=== PATIENT | male | born 1990 | race Caucasian/White ===

== ENCOUNTER 2017-07-27 12:30 | Emergency (ER) | payer OTHER, MEDICAID ==
[2017-07-27] MEDS: NORCO, ANEXSIA 5/325MG TABLET (HYDROcodone/ACETAMINOPHEN) PO (13:15)
[2017-07-27] MEDS: ONDANSETRON 4 MG ORAL DISINTEGRATING TAB (S0181) PO (13:15)
== END 2017-07-27 14:32 | disposition home or self-care (01) ==
LOC: M ED 12:30
DX: S02.642A Fracture of ramus of left mandible, initial encounter for closed fracture (principal); Y04.8XXA Assault by other bodily force, initial encounter; Y92.009 Unspecified place in unspecified non-institutional (private) residence as the place of occurrence of the external cause; Y93.89 Activity, other specified; Y99.8 Other external cause status; J45.909 Unspecified asthma, uncomplicated; F41.9 Anxiety disorder, unspecified; M54.30 Sciatica, unspecified side; F17.210 Nicotine dependence, cigarettes, uncomplicated
CPT/HCPCS: 70450

== ENCOUNTER 2017-07-30 11:44 | Emergency (ER) | payer OTHER | END 2017-07-30 15:52 | disposition home or self-care (01) | LOC: M ED 11:44 | DX: Z76.0 Encounter for issue of repeat prescription (principal); F17.210 Nicotine dependence, cigarettes, uncomplicated; Z91.048 Other nonmedicinal substance allergy status | CPT/HCPCS: 99283 ==

== ENCOUNTER → 2018-01-03 | Outpatient (REF) | payer SELFPAY ==
[2018-01-03 20:01] LABS: ALBUMIN 4.6 GM/DL (3.2-5.2); ALBUMIN/GLOBULIN RATIO 1.48 (1.00-1.93); ALKALINE PHOSPHATASE 83 U/L (45-117); ALT/SGPT 30 U/L (12-78); ANION GAP 7 MEQ/L (8-16); AST/SGOT 14 U/L (7-37); BILIRUBIN,TOTAL 0.7 MG/DL (0.2-1.0); BLOOD UREA NITROGEN 13 MG/DL (7-18); CALCIUM LEVEL 8.9 MG/DL (8.5-10.1); CARBON DIOXIDE LEVEL 24 MEQ/L (21-32); CHLORIDE LEVEL 108 MEQ/L (98-107); CREATININE FOR GFR 0.83 MG/DL (0.70-1.30); FERRITIN 30 NG/ML (26-388); GLOMERULAR FILTRATION RATE > 60.0 (>60); GLUCOSE, FASTING 89 MG/DL (70-100); IRON (FE) 153 UG/DL (65-175); POTASSIUM SERUM 4.3 MEQ/L (3.5-5.1); SODIUM LEVEL 139 MEQ/L (136-145); TOTAL PROTEIN 7.7 GM/DL (6.4-8.2)
[2018-01-03 20:02] LABS: ESTIMATED AVERAGE GLUCOSE 97 MG/DL (60-110)
[2018-01-03 20:03] LABS: BASO % 0.6 % (0.0-1.0); EOS # 0.3 10^3/uL (0.0-0.50); EOS % 3.5 % (0.0-3.0); HEMATOCRIT 47.9 % (42.0-52.0); HEMOGLOBIN 16.5 g/dl (13.5-17.5); IMMATURE GRANULOCYTE % 0.3 % (0-3.0); LYMPH % 27.6 % (24.0-44.0); MEAN CORPUSCULAR HEMOGLOBIN 30.2 pg (27.0-33.0); MEAN CORPUSCULAR HGB CONC 34.4 g/dl (32.0-36.5); MEAN CORPUSCULAR VOLUME 87.7 fl (80.0-96.0); MONO # 0.5 10^3/uL (0.0-0.8); MONO % 6.9 % (0.0-5.0); NEUTROPHILS # 4.4 10^3/uL (1.8-7.7); NEUTROPHILS % 61.1 % (36.0-66.0); PLATELET COUNT, AUTOMATED 309 10^3/uL (150-450); RED BLOOD COUNT 5.46 10^6/uL (4.30-6.10); RED CELL DISTRIBUTION WIDTH 12.9 % (11.5-14.5); WHITE BLOOD COUNT 7.2 10^3/uL (4.0-10.0)
[2018-01-04 09:47] LABS: VITAMIN B12 LEVEL 421 PG/ML (247-911)
[2018-01-08 14:16] LABS: VITAMIN B1 LEVEL WHOLE BLOOD 136.5 nmol/L (66.5-200.0)
== END ==
LOC: M LAB REF 18:55
DX: G60.9 Hereditary and idiopathic neuropathy, unspecified (principal)

== ENCOUNTER 2020-06-29 15:19 | Emergency (ER) | payer MEDICAID, OTHER ==
[~2020-06-29 15:19] MED LIST: HYDR-3715 PO; PERC5TAB12 PO; VENTAER IN; ZOFR4TAB14 PO
[2020-06-29 17:46] VITALS: BP 100/62
== END 2020-06-29 17:48 | disposition home or self-care (01) ==
LOC: M ED 15:19
DX: F43.0 Acute stress reaction (principal); J45.909 Unspecified asthma, uncomplicated; F41.9 Anxiety disorder, unspecified

== ENCOUNTER 2020-12-11 09:25 | Inpatient (IN) | payer MEDICAID ==
[~2020-12-11] VITALS: Ht 172.7 cm; Wt 65.2 kg
[2020-12-11] MEDS ORDERED: KETOROLAC 30 MG/ML 1ML VIAL IV ONE (09:35)
[2020-12-11] MEDS ORDERED: ACETAMINOPHEN 500 MG TAB PO ONE (09:35)
[2020-12-11] MEDS ORDERED: VANCOMYCIN HCL 1,250 MG in NS 250 ML IV ONE (09:45)
[2020-12-11] MEDS ORDERED: NS 1,910 ML in IV 1 EA IV ONE (09:45)
[2020-12-11] MEDS ORDERED: VANCOMYCIN HCL 750 MG, VIAL MATE ADAPTER 1 EACH in NS 250 ML IV ONE (09:50)
[2020-12-11 10:02] LABS: VENOUS BASE EXCESS 0.2 (-2.0-2.0); VENOUS HCO3 26.2 MEQ/L (23.0-27.0); VENOUS O2 SATURATION 54.1 % (60.0-80.0); VENOUS PARTIAL PRESSURE CO2 47.2 mmHg (38.0-50.0); VENOUS PARTIAL PRESSURE O2 26.9 mmHg (30.0-50.0); VENOUS PH 7.362 UNITS (7.330-7.430); VENOUS STANDARD HCO3 23.6 MEQ/L; VENOUS TOTAL CO2 27.6 MEQ/L (24.0-28.0)
[2020-12-11 10:06] LABS: BASO % 0.3 % (0.0-1.0); EOS % 0.1 % (0.0-3.0); HEMATOCRIT 41.5 % (42.0-52.0); HEMOGLOBIN 13.8 g/dl (13.5-17.5); LYMPH # 0.2 10^3/uL (1.5-5.0); LYMPH % 1.1 % (24.0-44.0); MEAN CORPUSCULAR HEMOGLOBIN 29.4 pg (27.0-33.0); MEAN CORPUSCULAR HGB CONC 33.3 g/dl (32.0-36.5); MEAN CORPUSCULAR VOLUME 88.5 fl (80.0-96.0); MONO # 0.5 10^3/uL (0.0-0.8); MONO % 2.9 % (2.0-8.0); NEUTROPHILS # 14.8 10^3/uL (1.5-8.5); NEUTROPHILS % 94.2 % (36.0-66.0); PLATELET COUNT, AUTOMATED 202 10^3/uL (150-450); RED BLOOD COUNT 4.69 10^6/uL (4.30-6.10); WHITE BLOOD COUNT 15.7 10^3/uL (4.0-10.0)
--- NOTE | 2020-12-11 10:09 | REP ---
INDICATION: SEPSIS/SHOCK. COMPARISON: 03/27/2016. TECHNIQUE: Single portable AP view of the chest was performed. FINDINGS: There is no acute infiltrate or pulmonary edema. Lungs are clear. The heart is not significantly enlarged. The mediastinal silhouette is unremarkable. The visualized osseous structures are intact. IMPRESSION: No acute pulmonary disease. <Electronically signed by Jairo Sharma > 12/11/20 [id number]
[2020-12-11] MEDS ORDERED: MORPHINE 4 MG/ML 1ML VIAL/SYRINGE (J2270) IV PRN (10:20)
[2020-12-11 10:46] LABS: ALBUMIN 2.5 GM/DL (3.2-5.2); ALT/SGPT 96 U/L (12-78); AMYLASE 20 U/L (25-115); BILIRUBIN,DIRECT 0.6 MG/DL (0.0-0.2); BILIRUBIN,TOTAL 1.1 MG/DL (0.2-1.0); BLOOD UREA NITROGEN 10 MG/DL (7-18); CALCIUM LEVEL 8.4 MG/DL (8.5-10.1); CARBON DIOXIDE LEVEL 29 MEQ/L (21-32); CHLORIDE LEVEL 97 MEQ/L (98-107); CK-MB VALUE MASS < 1.0 NG/ML (<3.6); CPK CREATINE PHOSPHOKINASE 25 U/L (39-308); GLOMERULAR FILTRATION RATE > 60.0 (>60); GLUCOSE, FASTING 129 MG/DL (70-100); POTASSIUM SERUM 3.4 MEQ/L (3.5-5.1); SODIUM LEVEL 133 MEQ/L (136-145); TOTAL PROTEIN 5.8 GM/DL (6.4-8.2); TROPONIN I < 0.02 NG/ML (< 0.10)
[2020-12-11] MEDS ORDERED: VANCOMYCIN HCL 500 MG in D5W MINI-BAG PLUS 100 ML IV ONE (10:50)
--- NOTE | 2020-12-11 10:58 | REP ---
INDICATION: swelling redness ?drainable abscess. COMPARISON: None. TECHNIQUE: Real-time sonographic evaluation of right forearm soft tissues performed. FINDINGS: No fluid collection or abscess is seen. Note is made of occlusive thrombosis of the cephalic vein from the level of the distal humerus to the distal forearm. There is also thrombosis of the basilic vein throughout the forearm. IMPRESSION: No abscess. Thrombosis of cephalic and basilic veins in the forearm. <Electronically signed by Jairo Sharma > 12/11/20 [id number]
--- NOTE | 2020-12-11 13:31 | HPEPDOC ---
[facility] Medical History & Physical Date of Admission December 11, 2020 Date of Service: December 11, 2020 History and Physical CHIEF COMPLAINT: right arm swelling HISTORY OF PRESENT ILLNESS: 30 yo male with pmhx of ivda with "johan" and heroin, presents for 1-2 day history of right arm swelling, with laceration to right 3rd finger. He states his last iv drug use was yesterday with johan. He states he only injects in his forearm, and antecubital fossa. He denies chest pain, shortness of breath, abdominal pain, nausea, vomiting, diarrhea. PAST MEDICAL HISTORY: Denies SOCIAL HISTORY: IV drug use ALLERGIES: Please see below. REVIEW OF SYSTEMS: Negative except as per HPI. HOME MEDICATIONS: Please see below. PHYSICAL EXAMINATION: VITAL SIGNS: See below General: NAD, lying comfortably in bed HEENT: NC/AT, EOMI Lungs: CTA B/L Heart: +S1S2, RRR, -M/R/G Abd: soft, NT, +BS Ext: no edema, RUE swelling, erythema, right 3rd digit laceration Neuro: no gross focal deficits, sensation intact throughout, strength 5/5 LABORATORY DATA: See below. MICROBIOLOGY: Please see below. A/P: 30 year old male admitted for RUE cellulitis with PMHx of IVDA. #cellulitis - IV Vanco - cultures pending Vital Signs Vital Signs Date Time Temp Pulse Resp B/P (MAP) Pulse Ox O2 Delivery O2 Flow Rate FiO2 12/11/20 11:21 100.0 12/11/20 11:08 18 12/11/20 11:00 104 106/59 (75) 98 12/11/20 09:34 Room Air Laboratory Data Labs 24H Laboratory Tests 2 12/11/20 09:53: Immature Granulocyte % (Auto) 1.4, Neutrophils (%) (Auto) 94.2H, Lymphocytes (%) (Auto) 1.1L, Monocytes (%) (Auto) 2.9, Eosinophils (%) (Auto) 0.1, Basophils (%) (Auto) 0.3, Neutrophils # (Auto) 14.8H, Lymphocytes # (Auto) 0.2L, Monocytes # (Auto) 0.5, Eosinophils # (Auto) 0.0, Basophils # (Auto) 0.0, Nucleated Red Blood Cells % (auto) 0.0, Blood Gas Bicarbonate Standard 23.6, Venous Blood pH 7.362, Venous Blood Partial Pressure CO2 47.2, Venous Blood Partial Pressure O2 26.9L, Venous Blood Total Carbon Dioxide 27.6, Venous Blood HCO3 26.2, Venous Blood Oxygen Saturation 54.1L, Venous Blood Base Excess 0.2, Anion Gap 7L, Glomerular Filtration Rate > 60.0, Lactic Acid Level 3.6*H, Calcium Level 8.4L, Total Bilirubin 1.1H, Direct Bilirubin 0.6H, Aspartate Amino Transf (AST/SGOT) 33, Alanine Aminotransferase (ALT/SGPT) 96H, Alkaline Phosphatase 118H, Total Creatine Kinase 25L, Creatine Kinase MB < 1.0, Creatine Kinase MB Relative Index 4.00, Troponin I < 0.02, C-Reactive Protein, Quantitative 28.10H, Total Protein 5.8L, Albumin 2.5L, Albumin/Globulin Ratio 0.8, Amylase Level 20L CBC/BMP Laboratory Tests 12/11/20 09:53 Microbiology Microbiology 12/11/20 Blood Culture, Received Pending 12/11/20 Blood Culture, Received Pending 12/11/20 Respiratory Virus Panel (PCR) ([facility]) - Final, Complete Home Medications No Active Prescriptions or Reported Meds Allergies Coded Allergies: Cat Dander (Verified Allergy, Intermediate, 07/27/17) A-FIB/CHADSVASC A-FIB History Current/History of A-Fib/PAF?: No CALLIE THOMASON MD December 11, 2020 13:31
--- NOTE | 2020-12-11 13:54 | ECGEPIP ---
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
[2020-12-11 14:00] VITALS: BP 125/73
[2020-12-11] MEDS: ALBUTEROL 90 MCG/ACT 8GM HFA INHALER INH PRN (14:33)
[2020-12-11 15:37] LABS: CK-MB VALUE MASS < 1.0 NG/ML (<3.6); CPK CREATINE PHOSPHOKINASE 26 U/L (39-308); MAGNESIUM LEVEL 1.8 MG/DL (1.8-2.4); MB/CK RELATIVE INDEX 3.85 (< OR =4); TROPONIN I < 0.02 NG/ML (< 0.10)
[2020-12-11] MEDS ORDERED: PERCOCET 5MG/325MG TAB PO PRN (16:00)
[2020-12-11] MEDS: PERCOCET 5MG/325MG TAB PO PRN ×2 (16:09→20:50)
[2020-12-11] MEDS: NS 1,000 ML IV SCH (17:30)
[2020-12-11] MEDS: VANCOMYCIN HCL 1,000 MG, VIAL MATE ADAPTER 1 EACH in NS 250 ML IV SCH (17:30)
[2020-12-11] MEDS ORDERED: POTASSIUM CHLORIDE 10 MEQ SR TABLET PO ONE (18:00)
[2020-12-11] MEDS ORDERED: NS 1,000 ML IV ONE (19:10)
[2020-12-11] MEDS ORDERED: IPRATROPIUM 0.5MG/ALBUTEROL 2.5MG INH SOL UD 3ML (DUONEB) NEB PRN (19:35)
[2020-12-11 20:11] LABS: BLOOD UREA NITROGEN 10 MG/DL (7-18); CALCIUM LEVEL 7.4 MG/DL (8.5-10.1); CARBON DIOXIDE LEVEL 25 MEQ/L (21-32); CHLORIDE LEVEL 102 MEQ/L (98-107); CREATININE FOR GFR 0.75 MG/DL (0.70-1.30); GLOMERULAR FILTRATION RATE > 60.0 (>60); GLUCOSE, FASTING 127 MG/DL (70-100); MAGNESIUM LEVEL 1.7 MG/DL (1.8-2.4); POTASSIUM SERUM 4.2 MEQ/L (3.5-5.1); SODIUM LEVEL 134 MEQ/L (136-145)
[2020-12-11 20:25] VITALS: BP 119/64
[2020-12-11] MEDS: PIPERACILLIN/TAZOBACTAM SOD 4.5 GM in D5W MINI-BAG PLUS 50 ML IV SCH (20:49)
[2020-12-11] MEDS ORDERED: MORPHINE 2 MG/ML 1ML VIAL (J2270) IV ONE (22:05)
[2020-12-12] MEDS: VANCOMYCIN HCL 1,000 MG, VIAL MATE ADAPTER 1 EACH in NS 250 ML IV SCH ×4 (02:01→21:33)
[2020-12-12] MEDS: NS 1,000 ML IV SCH ×3 (02:01→19:37)
[2020-12-12] MEDS: ALBUTEROL 90 MCG/ACT 8GM HFA INHALER INH PRN (02:13)
[2020-12-12] MEDS: PIPERACILLIN/TAZOBACTAM SOD 4.5 GM in D5W MINI-BAG PLUS 50 ML IV SCH ×4 (03:09→19:36)
[2020-12-12] MEDS: PERCOCET 5MG/325MG TAB PO PRN ×4 (05:23→18:58)
[2020-12-12 06:47] LABS: HEMATOCRIT 35.8 % (42.0-52.0); MEAN CORPUSCULAR HEMOGLOBIN 29.6 pg (27.0-33.0); MEAN CORPUSCULAR HGB CONC 33.5 g/dl (32.0-36.5); MEAN CORPUSCULAR VOLUME 88.2 fl (80.0-96.0); PLATELET COUNT, AUTOMATED 195 10^3/uL (150-450); RED BLOOD COUNT 4.06 10^6/uL (4.30-6.10); WHITE BLOOD COUNT 11.4 10^3/uL (4.0-10.0)
[2020-12-12 07:01] LABS: BLOOD UREA NITROGEN 8 MG/DL (7-18); CALCIUM LEVEL 7.5 MG/DL (8.5-10.1); CARBON DIOXIDE LEVEL 25 MEQ/L (21-32); CHLORIDE LEVEL 105 MEQ/L (98-107); CREATININE FOR GFR 0.63 MG/DL (0.70-1.30); GLOMERULAR FILTRATION RATE > 60.0 (>60); GLUCOSE, FASTING 110 MG/DL (70-100); POTASSIUM SERUM 4.5 MEQ/L (3.5-5.1); SODIUM LEVEL 135 MEQ/L (136-145)
[2020-12-12 07:23] VITALS: BP 132/62
[2020-12-12] MEDS ORDERED: MAG SULF 1GM/100ML (MAG RUN) 1 GM in IV 1 EA IV ONE (09:00)
--- NOTE | 2020-12-12 09:03 | IPNPDOC ---
Text Note Date of Service The patient was seen on 12/12/20. NOTE Subjective: Patient seen and examined at bedside. Patient was transferred to PCU due to persistent tachycardia. Patient this morning. Denies any new medical complaints. No acute overnight events reported. Objective: VITAL SIGNS: See below General: NAD, lying comfortably in bed HEENT: NC/AT, EOMI Lungs: CTA B/L Heart: +S1S2, RRR, -M/R/G Abd: soft, NT, +BS Ext: no edema, RUE swelling, erythema, right 3rd digit laceration Neuro: no gross focal deficits, sensation intact throughout, strength 5/5 A/P: 30 yo male with pmhx of ivda with "johan" and heroin, presents for 1-2 day history of right arm swelling, with laceration to right 3rd finger. He states his last iv drug use was 12/10/20 with johan. He states he only injects in his forearm, and antecubital fossa. Admitted for RUE cellulitis. #cellulitis - IV Vanco - MRSA screen pending #tachycardia - sinus - likely related to his IVDA #asthma - today he states he has asthma, and he experiences flare ups when he is not using IV drugs #transaminitis - hepatitis profile pending - continue to trend VS,Fishbone, I+O VS, Fishbone, I+O Laboratory Tests 12/11/20 09:53 12/11/20 19:27 12/12/20 06:26 12/12/20 06:27 Vital Signs Date Time Temp Pulse Resp B/P (MAP) Pulse Ox O2 Delivery O2 Flow Rate FiO2 12/12/20 07:23 99.3 123 18 132/62 (85) 95 Room Air I&O- Last 24 Hours up to 6 AM 12/12/20 05:59 Intake Total 4820 ml Output Total 600 ml Balance 4220 ml CALLIE THOMASON MD December 12, 2020 09:03
[2020-12-12 09:32] LABS: ALBUMIN 1.8 GM/DL (3.2-5.2); ALT/SGPT 59 U/L (12-78); BILIRUBIN,DIRECT 0.5 MG/DL (0.0-0.2); BILIRUBIN,TOTAL 0.7 MG/DL (0.2-1.0); TOTAL PROTEIN 4.8 GM/DL (6.4-8.2)
[2020-12-12 10:19] LABS: ERYTHROCYTE SEDIMENTATION RATE 34 mm/hr (0-15)
[2020-12-12 11:45] VITALS: BP 137/79
--- NOTE | 2020-12-12 12:01 | ECGEPIP ---
[facility] Test Date: 2020-12-12 Pat Name: DAYLIN YEPEZ Department: Room: [place] [address] Gender: Male Tromper: AMINTA : 1990 Requested By: CALLIE Tiwair Order Number: [id number] Reading MD: Kristie Garcia Measurements Intervals [place] Rate: 109 P: 51 [place]: 120 QRS: 46 QRSD: 88 T: 45 QT: 290 QTc: 390 Interpretive Statements SINUS TACHYCARDIA NO CHANGE COMPARED TO 12/11/20 Electronically Signed on 12-12-2020 12:00:46 EDT by Kristie Garcia
[2020-12-12] MEDS ORDERED: ONDANSETRON 4 MG TAB PO PRN (13:40)
[2020-12-12 15:46] VITALS: BP 137/81
[2020-12-12 20:00] VITALS: BP 119/65
[2020-12-12] MEDS ORDERED: MORPHINE 4 MG/ML 1ML VIAL/SYRINGE (J2270) IV PRN (22:50)
[2020-12-13] VITALS (7 sets, daily range): BP systolic 122–136; BP diastolic 64–79
[2020-12-13] MEDS: ALBUTEROL 90 MCG/ACT 8GM HFA INHALER INH PRN (01:05)
[2020-12-13] MEDS: PIPERACILLIN/TAZOBACTAM SOD 4.5 GM in D5W MINI-BAG PLUS 50 ML IV SCH ×3 (01:10→13:36)
[2020-12-13] MEDS: PERCOCET 5MG/325MG TAB PO PRN ×5 (02:43→21:32)
[2020-12-13] MEDS: NS 1,000 ML IV SCH ×2 (05:48→13:37)
[2020-12-13] MEDS: VANCOMYCIN HCL 1,000 MG, VIAL MATE ADAPTER 1 EACH in NS 250 ML IV SCH (05:49)
[2020-12-13 06:10] LABS: BASO % 0.4 % (0.0-1.0); EOS # 0.1 10^3/uL (0.0-0.5); EOS % 1.5 % (0.0-3.0); HEMATOCRIT 37.4 % (42.0-52.0); LYMPH % 10.9 % (24.0-44.0); MEAN CORPUSCULAR HEMOGLOBIN 28.6 pg (27.0-33.0); MEAN CORPUSCULAR HGB CONC 32.1 g/dl (32.0-36.5); MEAN CORPUSCULAR VOLUME 89.3 fl (80.0-96.0); MONO % 10.8 % (2.0-8.0); NEUTROPHILS # 7.1 10^3/uL (1.5-8.5); NEUTROPHILS % 75.2 % (36.0-66.0); PLATELET COUNT, AUTOMATED 233 10^3/uL (150-450); RED BLOOD COUNT 4.19 10^6/uL (4.30-6.10); WHITE BLOOD COUNT 9.4 10^3/uL (4.0-10.0)
[2020-12-13 06:39] LABS: BLOOD UREA NITROGEN 9 MG/DL (7-18); CALCIUM LEVEL 7.4 MG/DL (8.5-10.1); CARBON DIOXIDE LEVEL 25 MEQ/L (21-32); CHLORIDE LEVEL 105 MEQ/L (98-107); CREATININE FOR GFR 0.58 MG/DL (0.70-1.30); GLOMERULAR FILTRATION RATE > 60.0 (>60); GLUCOSE, FASTING 103 MG/DL (70-100); MAGNESIUM LEVEL 2.1 MG/DL (1.8-2.4); POTASSIUM SERUM 4.6 MEQ/L (3.5-5.1); SODIUM LEVEL 134 MEQ/L (136-145)
[2020-12-13 06:51] LABS: ERYTHROCYTE SEDIMENTATION RATE 49 mm/hr (0-15)
[2020-12-13 10:17] LABS: HEPATITIS B SURFACE ANTIGEN NEGATIVE (NEGATIVE)
[2020-12-13 10:44] LABS: HEPATITIS B CORE ANTIBODY IGM NEGATIVE (NEGATIVE)
[2020-12-13 10:46] LABS: HEPATITIS A ANTIBODY IGM NEGATIVE (NEGATIVE)
[2020-12-13 10:49] LABS: HEPATITIS C VIRUS ABY INDEX > 11.0 INDEX (<0.8)
--- NOTE | 2020-12-13 10:50 | IPNPDOC ---
Text Note Date of Service The patient was seen on 12/13/20. NOTE Subjective: Patient seen and examined at bedside. Patient was transferred to PCU due to persistent tachycardia. Patient this morning. Denies any new medical complaints. No acute overnight events reported. Objective: VITAL SIGNS: See below General: NAD, lying comfortably in bed HEENT: NC/AT, EOMI Lungs: CTA B/L Heart: +S1S2, RRR, -M/R/G Abd: soft, NT, +BS Ext: no edema, RUE swelling, erythema, right 3rd digit laceration Neuro: no gross focal deficits, sensation intact throughout, strength 5/5 A/P: 30 yo male with pmhx of ivda with "johan" and heroin, presents for 1-2 day history of right arm swelling, with laceration to right 3rd finger. He states his last iv drug use was 12/10/20 with johan. He states he only injects in his forearm, and antecubital fossa. Admitted for RUE cellulitis. #cellulitis - switching to iv unasyn today - MRSA screen positive #bacteremia in the setting of IVDA - BCx + x 2 for strep pyo, repeat pending - echo pending - will continue with unasyn - discussed with ID #tachycardia - sinus rhythm - multifactorial, likely related to his ivda/withdrawal #asthma - continue inhalers #transaminitis - hepatitis profile pending, negative to date - continue to trend, improving Dispo: pending echocardiogram, continue iv abx VS,Fishbone, I+O VS, Fishbone, I+O Laboratory Tests 12/13/20 05:54 Vital Signs Date Time Temp Pulse Resp B/P (MAP) Pulse Ox O2 Delivery O2 Flow Rate FiO2 12/13/20 08:00 100.8 117 19 122/64 (83) 96 Room Air I&O- Last 24 Hours up to 6 AM 12/13/20 06:00 Intake Total 5590 ml Output Total 400 ml Balance 5190 ml CALLIE THOMASON MD December 13, 2020 10:50
[2020-12-13] MEDS: MORPHINE 4 MG/ML 1ML VIAL/SYRINGE (J2270) IV PRN ×2 (13:48→22:42)
[2020-12-13] MEDS: AMPICILLIN SOD/SULBACTAM SOD 1.5 GM in D5W MINI-BAG PLUS 50 ML IV SCH (19:47)
[2020-12-14] VITALS: BP 134/73
[2020-12-14] MEDS: AMPICILLIN SOD/SULBACTAM SOD 1.5 GM in D5W MINI-BAG PLUS 50 ML IV SCH ×3 (02:07→14:15)
[2020-12-14 04:00] VITALS: BP 130/88
[2020-12-14] MEDS: PERCOCET 5MG/325MG TAB PO PRN ×3 (04:32→14:04)
[2020-12-14 05:47] LABS: BASO # 0.1 10^3/uL (0.0-0.2); BASO % 1.2 % (0.0-1.0); EOS # 0.4 10^3/uL (0.0-0.5); EOS % 3.2 % (0.0-3.0); HEMATOCRIT 39.1 % (42.0-52.0); HEMOGLOBIN 12.9 g/dl (13.5-17.5); LYMPH # 1.7 10^3/uL (1.5-5.0); LYMPH % 14.9 % (24.0-44.0); MEAN CORPUSCULAR HEMOGLOBIN 29.4 pg (27.0-33.0); MEAN CORPUSCULAR VOLUME 89.1 fl (80.0-96.0); MONO # 1.2 10^3/uL (0.0-0.8); MONO % 10.2 % (2.0-8.0); NEUTROPHILS # 7.6 10^3/uL (1.5-8.5); NEUTROPHILS % 66.9 % (36.0-66.0); PLATELET COUNT, AUTOMATED 279 10^3/uL (150-450); RED BLOOD COUNT 4.39 10^6/uL (4.30-6.10); WHITE BLOOD COUNT 11.4 10^3/uL (4.0-10.0)
[2020-12-14 06:21] LABS: BLOOD UREA NITROGEN 10 MG/DL (7-18); CALCIUM LEVEL 7.6 MG/DL (8.5-10.1); CARBON DIOXIDE LEVEL 28 MEQ/L (21-32); CHLORIDE LEVEL 98 MEQ/L (98-107); CREATININE FOR GFR 0.58 MG/DL (0.70-1.30); GLOMERULAR FILTRATION RATE > 60.0 (>60); GLUCOSE, FASTING 102 MG/DL (70-100); POTASSIUM SERUM 4.7 MEQ/L (3.5-5.1); SODIUM LEVEL 131 MEQ/L (136-145)
[2020-12-14 08:00] VITALS: BP 122/76
--- NOTE | 2020-12-14 11:26 | DS.PDOC ---
Discharge Summary General Date of Admission December 11, 2020 at 12:52 Date of Discharge 12/14/20 Discharge Summary PROCEDURES PERFORMED DURING STAY: TTE ADMITTING/DISCHARGE DIAGNOSES: 1. Right arm cellulitis COMPLICATIONS/CHIEF COMPLAINT: Cellulitis. HISTORY OF PRESENT ILLNESS/HOSPITAL COURSE: 30 yo male with pmhx of ivda with "johan" and heroin, presents for 1-2 day history of right arm swelling, with l aceration to right 3rd finger. He states his last iv drug use was 12/10/20 with johan. He states he only injects in his forearm, and antecubital fossa. Admitted for RUE cellulitis. # R arm cellulitis: On day of discharge erythema appears to have almost completely resolved. Minimal pain or swelling. IV Unasyn switched to Augmentin. # bacteremia in the setting of IVDA: BCx 12/11 Strep pyogenes. Discussed with ID Dr Melissa, not likely related to underlying endocarditis. Discussed echo results with Dr Garcia no vegetations. Repeat BCx negative after 48 hrs. #transaminitis: hepatitis C should follow-up with PCP. Down trended and resolved. # Counseled to quit drug use DISCHARGE MEDICATIONS: Please see below. ALLERGIES: Please see below. PHYSICAL EXAMINATION ON DISCHARGE: VITAL SIGNS: Please see below. Constitutional: Awake and alert, in no apparent distress. Poor hygiene. Disheveled. ENT: Sclera are clear. Mucosa is moist. Respiratory: Lungs CTA bilaterally. No respiratory distress. Cardiovascular: Regular heart rate and rhythm without any obvious murmurs Gastrointestinal: Abdomen is soft, non distended, non tender, BS present. Musculoskeletal: No lower extremity edema Neurologic: No focal neurological deficit. Mental Status: A&O x3, normal affect Skin: Right upper extremity some minimal erythema and minimal swelling there is a right third digit laceration. Patient tells me this appears old completely resolved from when he came in. Track mejias. LABORATORY DATA: Please see below. IMAGING: See chart. Formal echo read still pending cmm inspector. PROGNOSIS: Fair ACTIVITY: [As tolerated]. DIET: Regular DISPOSITION: Home DISCHARGE INSTRUCTIONS: Please follow up with your primary care physician within 1 week from discharge. If you do not have one, please follow up with us to schedule an appointment. Please keep all of your follow up appointments. Please call central to book your appointments with hospital specialists. Please take all your medications as prescribed. Please call/come to Clinic or go to the Emergency Department if - Temp >101, intractable Nausea/Vomiting, Diarrhea, Mouth sores, Headaches, Altered mental status, Seizures, sudden onset of swelling, bleeding, shortness of breath or chest pain. ITEMS TO FOLLOWUP ON ON OUTPATIENT: Follow-up with PCP within 5 days of discharge DISCHARGE CONDITION: [Stable]. TIME SPENT ON DISCHARGE: 40 minutes. Vital Signs/I&Os Vital Signs Date Time Temp Pulse Resp B/P (MAP) Pulse Ox O2 Delivery O2 Flow Rate FiO2 12/14/20 08:51 20 12/14/20 08:00 98.1 102 122/76 (91) 95 Room Air I&O- Last 24 Hours up to 6 AM 12/14/20 06:00 Intake Total 5115 ml Balance 5115 ml Laboratory Data Labs 24H Laboratory Tests 2 12/14/20 05:34: Immature Granulocyte % (Auto) 3.6H, Neutrophils (%) (Auto) 66.9H, Lymphocytes (%) (Auto) 14.9L, Monocytes (%) (Auto) 10.2H, Eosinophils (%) (Auto) 3.2H, Basophils (%) (Auto) 1.2H, Neutrophils # (Auto) 7.6, Lymphocytes # (Auto) 1.7, Monocytes # (Auto) 1.2H, Eosinophils # (Auto) 0.4, Basophils # (Auto) 0.1, Nucleated Red Blood Cells % (auto) 0.0, Anion Gap 5L, Glomerular Filtration Rate > 60.0, Calcium Level 7.6L CBC/BMP Laboratory Tests 12/14/20 05:34 Microbiology Microbiology 12/12/20 Blood Culture - Preliminary, Resulted No growth after 24 hours . All specim... 12/12/20 Blood Culture - Preliminary, Resulted No growth after 24 hours . All specim... 12/11/20 Blood Culture - Final, Complete Streptococcus Pyogenes Grp A 12/11/20 Blood Culture - Final, Complete Streptococcus Pyogenes Grp A 12/11/20 Respiratory Virus Panel (PCR) ([facility]) - Final, Complete Discharge Medications Scheduled Amoxicillin/Potassium Clav (Augmentin 875-125 Tablet) 1 Each Tablet, 1 TAB PO BID Allergies Coded Allergies: Cat Dander (Verified Allergy, Intermediate, 07/27/17) MAURILIO KINCAID MD December 14, 2020 11:26
[2020-12-14] MEDS ORDERED: AUGM875T28 PO (11:27)
[2020-12-14 12:00] VITALS: BP 123/82
--- NOTE | 2020-12-15 08:37 | ECHO ---
DATE OF PROCEDURE: 12/14/2020 Age: 30 Gender: Male Height: 172 cm Weight: 65 kg REFERRING PHYSICIAN: Omero Salomon M.D. INDICATION: Sepsis, rule out endocarditis in patient with a history of intravenous drug use. MEASUREMENTS: IVS 0.9 cm LV 4.9 cm LVPW 0.7 cm LA 2.5 cm Aorta 3.3 cm Mitral E wave velocity 66 cm/s Mitral A wave 54 cm/s E prime septal 7.9 cm/s E prime lateral 7.6 cm/s FINDINGS: This study is of good technical quality. The patient is in sinus rhythm. Left ventricle is normal size and systolic function, calculated left ventricular ejection fraction was 57%, which corresponds to my estimate as well. Right ventricle is of normal size and systolic function. Both atria appear normal. All four cardiac valves were well seen and appear normal. No vegetations are seen. No pericardial effusion is noted. Inferior vena cava was not well seen. Aortic root and aortic arch appear normal. Doppler interrogation reveals competent aortic valve. There is trace mitral and trace tricuspid insufficiency. Pulmonic valve is functionally competent as well. Evaluation of diastolic function likely reveals normal diastolic function. Tissue Doppler velocities are mildly reduced, but I believe that the measurement was not accurate. CONCLUSIONS: 1. Study is of good technical quality, underlying sinus rhythm. 2. Normal LV size, systolic and diastolic function. 3. No significant valvular disease. 4. Unable to estimate central venous pressure and pulmonary artery pressure. 5. No visualized vegetations. MTDD
== END 2020-12-14 15:37 | disposition home or self-care (01) | DRG 383 ==
LOC: M ED 09:25 → EDBD 09:25 → EDSEX 09:25 → EEVIPCON 12:52 → M ED INP 12:52 → ENRESERV 13:10 → M MSPAV 14:01 → M PCU 20:24
PROVIDERS: ADMIT Internal Medicine; ATTEND Family Medicine
DX: L03.113 Cellulitis of right upper limb (principal); R78.81 Bacteremia; F11.10 Opioid abuse, uncomplicated; F16.10 Hallucinogen abuse, uncomplicated; R00.0 Tachycardia, unspecified; J45.909 Unspecified asthma, uncomplicated

== ENCOUNTER 2021-01-14 23:00 | Emergency (ER) | payer MEDICAID ==
[~2021-01-14] VITALS: Ht 172.7 cm; Wt 60.6 kg
[~2021-01-14 23:00] MED LIST changes: +AUGM875T28 PO
[2021-01-15 03:13] VITALS: BP 118/81
--- NOTE | 2021-01-15 08:03 | ECGEPIP ---
[facility] - ED Test Date: 2021-01-14 Pat Name: DAYLIN YEPEZ Department: Room: - Gender: Male Welfare Eligibility Interviewer: SR : 1990 Requested By: JULIAN BANDA Order Number: [id number] Reading MD: Jose Dougherty Measurements Intervals [place] Rate: 92 P: 53 [place]: 138 QRS: 43 QRSD: 84 T: 42 QT: 342 QTc: 422 Interpretive Statements Normal sinus rhythm rate decreased from tracing done 12-12-20 Electronically Signed on 01-15-2021 8:02:53 EDT by Jose Dougherty
== END 2021-01-15 03:15 | disposition home or self-care (01) ==
LOC: M ED 23:00
DX: F16.10 Hallucinogen abuse, uncomplicated (principal); J30.81 Allergic rhinitis due to animal (cat) (dog) hair and dander

== ENCOUNTER 2021-03-24 21:07 | Emergency (ER) | payer MEDICAID ==
[~2021-03-24] VITALS: Ht 172.7 cm; Wt 59.1 kg
[2021-03-24] MEDS ORDERED: NS 1,000 ML IV ONE (21:55)
[2021-03-24] MEDS ORDERED: MORPHINE 4 MG/ML 1ML VIAL/SYRINGE (J2270) IV PRN (22:00)
[2021-03-24 22:25] LABS: BASO # 0.1 10^3/uL (0.0-0.2); BASO % 0.3 % (0.0-1.0); EOS % 0.2 % (0.0-3.0); HEMATOCRIT 42.1 % (42.0-52.0); LYMPH # 0.6 10^3/uL (1.5-5.0); LYMPH % 4.2 % (24.0-44.0); MEAN CORPUSCULAR HEMOGLOBIN 28.6 pg (27.0-33.0); MEAN CORPUSCULAR HGB CONC 33.3 g/dl (32.0-36.5); MEAN CORPUSCULAR VOLUME 86.1 fl (80.0-96.0); MONO # 0.4 10^3/uL (0.0-0.8); MONO % 2.7 % (2.0-8.0); NEUTROPHILS # 13.3 10^3/uL (1.5-8.5); NEUTROPHILS % 92.1 % (36.0-66.0); PLATELET COUNT, AUTOMATED 220 10^3/uL (150-450); RED BLOOD COUNT 4.89 10^6/uL (4.30-6.10); WHITE BLOOD COUNT 14.5 10^3/uL (4.0-10.0)
[2021-03-24 22:49] LABS: ERYTHROCYTE SEDIMENTATION RATE 4 mm/hr (0-15)
[2021-03-24 23:02] LABS: ALBUMIN 3.1 GM/DL (3.2-5.2); ALT/SGPT 239 U/L (12-78); BILIRUBIN,DIRECT 0.6 MG/DL (0.0-0.2); BILIRUBIN,TOTAL 1.3 MG/DL (0.2-1.0); BLOOD UREA NITROGEN 7 MG/DL (7-18); C REACTIVE PROTEIN QUANTITATIV 2.23 MG/DL (0.00-0.30); CALCIUM LEVEL 8.2 MG/DL (8.5-10.1); CARBON DIOXIDE LEVEL 24 MEQ/L (21-32); CHLORIDE LEVEL 107 MEQ/L (98-107); CREATININE FOR GFR 0.77 MG/DL (0.70-1.30); GLOMERULAR FILTRATION RATE > 60.0 (>60); GLUCOSE, FASTING 94 MG/DL (70-100); POTASSIUM SERUM 3.6 MEQ/L (3.5-5.1); SODIUM LEVEL 138 MEQ/L (136-145); THYROID STIMULATING HORMONE 0.173 uIU/ML (0.358-3.740)
[2021-03-25 01:08] LABS: FREE T4 1.18 NG/DL (0.76-1.46)
[2021-03-25] MEDS ORDERED: KETO10TAB PO (03:56)
[2021-03-25] MEDS ORDERED: DOXY1CAP62 PO (03:56)
[2021-03-25 04:02] VITALS: BP 101/57
--- NOTE | 2021-03-25 07:56 | REP ---
INDICATION: DYSPNEA/COUGH COMPARISON: 12/11/2020 TECHNIQUE: Portable AP view of the chest FINDINGS: The mediastinum and cardiac silhouette are stable and within normal limits for portable technique. The lung hinojosa are clear without acute consolidation, effusion, or pneumothorax. Skeletal structures are intact with evidence for old healed left rib fractures noted. IMPRESSION: No acute cardiopulmonary process appreciated. <Electronically signed by Roc Harmon > 03/25/21 0756
--- NOTE | 2021-03-25 14:15 | REP ---
INDICATION: lue pain, ivda r/o dvt. Repeat dictation. Preliminary report is provided at the time of the exam by minnie FOWLER. COMPARISON: None. TECHNIQUE: Left upper extremity duplex venous sonography. FINDINGS: The internal jugular, axillary, brachial, basilic, and cephalic veins are anechoic and compressible in the left upper extremity. Color flow imaging is homogeneous. Spectral Doppler interrogation is unremarkable. Venous spectral Doppler waveforms are recorded in the proximal right and left subclavian veins. There is symmetric normal pulsatility and respiratory phasicity. There is no evidence of left upper extremity venous thrombosis. IMPRESSION: Negative left upper extremity duplex venous ultrasound. No evidence of venous thrombosis. <Electronically signed by Nigel Evans > 03/25/21 [id number]
--- NOTE | 2021-03-25 21:19 | ECGEPIP ---
[facility] - ED Test Date: 2021-03-24 Pat Name: DAYLIN YEPEZ Department: Room: - Gender: Male Warehouser: SUMMER : 1990 Requested By: GÉNESIS Parikh Order Number: [id number] Reading MD: Sabrina Durand Measurements Intervals [place] Rate: 94 P: 58 [place]: 134 QRS: 45 QRSD: 88 T: 48 QT: 340 QTc: 425 Interpretive Statements Normal sinus rhythm similar 01/14/21 Electronically Signed on 03-25-2021 21:18:55 EDT by Sabrina Durand
== END 2021-03-25 04:06 | disposition home or self-care (01) ==
LOC: M ED 21:07
DX: L03.114 Cellulitis of left upper limb (principal); I80.8 Phlebitis and thrombophlebitis of other sites; F19.10 Other psychoactive substance abuse, uncomplicated; Z87.2 Personal history of diseases of the skin and subcutaneous tissue; J30.81 Allergic rhinitis due to animal (cat) (dog) hair and dander
CPT/HCPCS: 71045; 80048; 80076; 83605; 84439; 84443; 85025; 85652; 86140; 87040; 87077; 93005; 93041; 93971; 94760; 96361; 96374; 99285; J2270